=== PATIENT | male | born 1990 | race Caucasian/White ===

== ENCOUNTER 2017-06-20 15:09 | Emergency (ER) | payer SELFPAY ==
[2017-06-20 15:22] VITALS: BP 138/83
--- NOTE | 2017-06-20 17:00 | ED Physician Documentation ---
Sore Throat/Dental Pain - HISTORIAN Historian: patient - HPI Stated Complaint: Dental pain Chief Complaint: Dental Pain Onset: days ago Context: Abscess, Dental Caries Associated Symptoms: moderate Further Comments: yes (27 year old male patient presents with complaints of dental pain for past month, worse the past few days. Denies using OTC pain medication.) - ROS CONST: no problems CVS/RESP: none GI/: denies: nausea, vomiting MS/SKIN/LYMPH: denies: muscle aches, rash, leg swelling, ankle swelling, other NEURO/PSYCH: none - PAST HX Past History: gum disease Other History: none Allergies/Adverse Reactions: Allergies Allergy/AdvReac Type Severity Reaction Status Date / Time No Known Allergies Allergy Verified 06/20/17 15:16 Home Medications: Ambulatory Orders Medication Instructions Recorded Penicillin V Potassium [Pen V K] 500 mg PO QID #40 tablet 06/20/17 - SOCIAL HX Smoking History: cigarettes Drug Use: marijuana (daily) - FAMILY HX Family History: No - VITAL SIGNS Vital Signs: Vital Signs Temp Pulse Resp BP Pulse Ox 99.8 F H 82 18 138/83 97 06/20/17 15:56 06/20/17 15:56 06/20/17 15:56 06/20/17 15:56 06/20/17 15:56 - REVIEWED ASSESSMENTS Nursing Assessment Reviewed: Yes Vitals Reviewed: Yes Dental Pain Physical Exam - EXAM General Appearance: no acute distress, alert Mouth/Throat: lips nml, pharynx nml, voice nml, no drooling, no air way problems , no thrush, membranes nml, gum swelling around teeth, widespread dental decay, other (multiple missing teeth; left molars with decay to gumline #36 and #37, # 35 broken with caries noted; erythema noted in gumline) Respiratory: no resp. distress CVS: reg. rate & rhythm Skin: normal color, warm/dry, NR, INT, PAL, DR Neuro/Psych: No: weakness Discharge Clincal Impression: Dental caries, Dental abscess Prescriptions: Penicillin V Potassium [Pen V K] 500 mg PO QID #40 tablet Referrals: Primary Doctor,No [Primary Care Provider] - 2 Days Condition: Serious Disposition: 01 HOME, SELF-CARE Decision to Admit: NO Decision Time: 15:45
== END 2017-06-20 15:56 | disposition home or self-care (01) ==
LOC: ED 15:09
DX: K02.9 Dental caries, unspecified (principal)
CPT/HCPCS: 99283